=== PATIENT | male | born 1990 | race Caucasian/White ===

== ENCOUNTER 2018-10-09 04:44 | Emergency (ER) | payer SELFPAY ==
[~2018-10-09] VITALS: Ht 170.2 cm; Wt 83.9 kg
[2018-10-09 04:46] VITALS: BP 133/76
--- NOTE | 2018-10-09 04:46 | NUR ---
PT AMBULATED TO ER 7
--- NOTE | 2018-10-09 04:46 | NUR ---
Pt presents to ED with soar throat, FERNÁNDEZ, fever at home and cough x3 hrs. Throat redness with 5/10 pain with swallowing. Afebrile at this time. Lungs clear throuhgout. Pt states coughing with phelgm at home. No cough present at this time. Positioned in bed with VSS. ER MD aware. Continue to monitor.
--- NOTE | 2018-10-09 05:32 | NUR ---
INLFLUENZA AND STREP CULTURES COLLECTED. PT TOLERATED PROCEDURE WELL. CONTINUE TO MONITOR.
[2018-10-09 06:40] VITALS: BP 133/76
--- NOTE | 2018-10-09 06:40 | NUR ---
Patient discharged with v/s stable. Written and verbal after care instructions given and explained. Patient alert, oriented and verbalized understanding of instructions. Ambulatory with steady gait. All questions addressed prior to discharge. ID band removed. Patient advised to follow up with PMD. Rx of Amoxicillin and Promethazine HydrochlorideSyrup given. Patient educated on indication of medication including possible reaction and side effects. Opportunity to ask questions provided and answered.
== END 2018-10-09 06:40 | disposition home or self-care (01) ==
LOC: MED 04:44
DX: J02.8 Acute pharyngitis due to other specified organisms (principal); B96.89 Other specified bacterial agents as the cause of diseases classified elsewhere
CPT/HCPCS: 36415; 87081; 87804; 99283